=== PATIENT | female | born 1990 | race Hispanic/Latino ===

== ENCOUNTER 2021-09-09 13:16 | Emergency (ER) | payer MEDICAID ==
[~2021-09-09] VITALS: Ht 162.6 cm; Wt 83.0 kg
[2021-09-09 13:37] VITALS: BP 114/76
[2021-09-09 13:37] LABS: APPEARANCE,URINE CLEAR (CLEAR); BILIRUBIN,URINE NEGATIVE (NEGATIVE); COLOR,URINE YELLOW (YELLOW); GLUCOSE, URINE (UA) NEGATIVE (NEGATIVE); KETONES,URINE NEGATIVE (NEGATIVE); LEUKOCYTE ESTERASE ,URINE NEGATIVE (NEGATIVE); NITRATE,URINE NEGATIVE (NEGATIVE); OCCULT BLOOD,URINE MODERATE (NEGATIVE); PH,URINE 7.5 (5.0-8.0); PROTEIN,URINE NEGATIVE (NEGATIVE); UROBILINOGEN,URINE 0.2 mg/dL (0.2-1.0)
[2021-09-09 13:40] LABS: HCG,QUAL RESULT POSITIVE (NEGATIVE)
[2021-09-09 13:41] LABS: BASOPHILS % (AUTO) 0.5 % (0.0-5.0); EOSINOPHILS % (AUTO) 1.8 % (0.0-8.0); HEMATOCRIT 39.1 % (36-48); LYMPHOCYTES % (AUTO) 16.2 % (21.0-51.0); MEAN CORPUSCULAR HEMOGLOBIN 28.8 pg (27.0-33.0); MEAN CORPUSCULAR VOLUME 87.3 fL (79-99); MONOCYTES % (AUTO) 7.7 % (3.0-13.0); PLATELET COUNT (AUTO) 192 K/uL (130-400); RED BLOOD CELL COUNT(AUTO) 4.48 MIL/uL (4.00-5.50); WHITE BLOOD COUNT (AUTO) 8.5 K/uL (4.8-10.8)
[2021-09-09 13:48] LABS: CREATININE 0.6 mg/dL (0.5-1.5); POTASSIUM 4.2 mmol/L (3.5-5.1)
[2021-09-09 13:53] LABS: BACTERIA,URINE Rare /HPF (None Seen); MUCUS,URINE Moderate LPF (None Seen); SQUAMOUS EPITHELIAL CELL,UR Few /HPF (0-2); WBC,URINE None Seen /HPF (0-1)
[2021-09-09 13:59] LABS: ALBUMIN 3.6 g/dL (3.5-5.0); BILIRUBIN,TOTAL 0.3 mg/dL (0.2-1.0); TOTAL PROTEIN, SERUM 7.6 g/dL (6.0-8.3)
== END 2021-09-09 16:32 | disposition home or self-care (01) ==
LOC: EDH 13:16
DX: O36.4XX0 Maternal care for intrauterine death, not applicable or unspecified (principal); Z3A.14 14 weeks gestation of pregnancy
CPT/HCPCS: 36415; 76801; 80053; 81001; 81025; 84702; 85025; 86900; 86901

== ENCOUNTER 2022-02-05 11:12 | Emergency (ER) | payer MEDICAID ==
[~2022-02-05] VITALS: Ht 162.6 cm; Wt 83.9 kg
[2022-02-05 11:41] VITALS: BP 123/71
[2022-02-05 12:32] LABS: BASOPHILS % (AUTO) 0.4 % (0.0-5.0); EOSINOPHILS % (AUTO) 1.3 % (0.0-8.0); HEMATOCRIT 38.5 % (36-48); LYMPHOCYTES % (AUTO) 12.2 % (21.0-51.0); MEAN CORPUSCULAR HEMOGLOBIN 28.2 pg (27.0-33.0); MEAN CORPUSCULAR HGB CONC 32.2 g/dL (32.0-36.0); MEAN CORPUSCULAR VOLUME 87.7 fL (79-99); NEUTROPHILS % (AUTO) 75.6 % (40.0-77.0); PLATELET COUNT (AUTO) 200 K/uL (130-400); RED BLOOD CELL COUNT(AUTO) 4.39 MIL/uL (4.00-5.50); RED CELL DISTRIBUTION WIDTH 12.9 % (11.0-15.5); WHITE BLOOD COUNT (AUTO) 10.4 K/uL (4.8-10.8)
[2022-02-05 12:53] LABS: CREATININE 0.7 mg/dL (0.5-1.5)
[2022-02-05 12:58] LABS: TOTAL PROTEIN, SERUM 7.5 g/dL (6.0-8.3)
[2022-02-05] MEDS ORDERED: ACETAMINOPHEN 500 MG TABLET PO SCH (13:30)
== END 2022-02-05 14:45 | disposition home or self-care (01) ==
LOC: EDH 11:12
DX: O03.9 Complete or unspecified spontaneous abortion without complication (principal); Z3A.01 Less than 8 weeks gestation of pregnancy
CPT/HCPCS: 36415; 76801; 80053; 84702; 84703; 85025; 86850; 86900; 86901; 87210

== ENCOUNTER 2022-04-09 23:45 | Emergency (ER) | payer MEDICAID ==
[~2022-04-09] VITALS: Ht 162.6 cm; Wt 86.6 kg
[2022-04-10 00:11] LABS: BASOPHILS % (AUTO) 0.3 % (0.0-5.0); EOSINOPHILS % (AUTO) 2.7 % (0.0-8.0); HEMATOCRIT 35.9 % (36-48); LYMPHOCYTES % (AUTO) 19.8 % (21.0-51.0); MEAN CORPUSCULAR HEMOGLOBIN 28.3 pg (27.0-33.0); MEAN CORPUSCULAR HGB CONC 32.6 g/dL (32.0-36.0); MEAN CORPUSCULAR VOLUME 86.7 fL (79-99); MONOCYTES % (AUTO) 8.6 % (3.0-13.0); NEUTROPHILS % (AUTO) 68.3 % (40.0-77.0); PLATELET COUNT (AUTO) 190 K/uL (130-400); RED BLOOD CELL COUNT(AUTO) 4.14 MIL/uL (4.00-5.50); WHITE BLOOD COUNT (AUTO) 8.6 K/uL (4.8-10.8)
[2022-04-10 00:18] LABS: CREATININE 0.8 mg/dL (0.5-1.5); POTASSIUM 4.1 mmol/L (3.5-5.1)
[2022-04-10 00:25] LABS: ALBUMIN 3.7 g/dL (3.5-5.0); TOTAL PROTEIN, SERUM 7.2 g/dL (6.0-8.3)
[2022-04-10 00:27] LABS: APPEARANCE,URINE CLEAR (CLEAR); BILIRUBIN,URINE NEGATIVE (NEGATIVE); COLOR,URINE LIGHT-YELLOW (YELLOW); GLUCOSE, URINE (UA) NEGATIVE (NEGATIVE); KETONES,URINE NEGATIVE (NEGATIVE); LEUKOCYTE ESTERASE ,URINE NEGATIVE Leu/uL (NEGATIVE); NITRATE,URINE NEGATIVE (NEGATIVE); OCCULT BLOOD,URINE NEGATIVE (NEGATIVE); PH,URINE 6.5 (5.0-8.0); PROTEIN,URINE NEGATIVE (NEGATIVE); UROBILINOGEN,URINE 0.2 mg/dL (0.2-1.0)
[2022-04-10 00:29] LABS: HCG,QUALITATIVE URINE NEGATIVE (NEGATIVE)
[2022-04-10 05:05] VITALS: BP 125/73
[2022-04-10] MEDS ORDERED: FAMO-136 PO (05:22)
[2022-04-10] MEDS ORDERED: ONDA22I IM (05:22)
== END 2022-04-10 05:34 | disposition home or self-care (01) ==
LOC: EDH 23:45
DX: K29.70 Gastritis, unspecified, without bleeding (principal); K80.50 Calculus of bile duct without cholangitis or cholecystitis without obstruction; Z90.49 Acquired absence of other specified parts of digestive tract
CPT/HCPCS: 36415; 76705; 80053; 81003; 81025; 83690; 85025

== ENCOUNTER 2023-07-29 11:18 | Observation (INO) | payer MEDICAID ==
[~2023-07-29] VITALS: Ht 162.6 cm; Wt 87.1 kg
[~2023-07-29 11:18] MED LIST: FAMO-136 PO; ONDA22I IM
[2023-07-29 11:52] VITALS: BP 117/69; PULSE 91; RESP 16
[2023-07-29 11:57] LABS: BASOPHILS # (AUTO) 0.04 K/uL (0.00-0.20); BASOPHILS % (AUTO) 0.3 % (0.0-5.0); EOSINOPHILS # (AUTO) 0.12 K/uL (0.00-0.70); HEMATOCRIT 33.8 % (36-48); IMMATURE GRANULOCYTE ABSOLUTE 0.18 K/uL (0-1); LYMPHOCYTES # (AUTO) 1.6 K/uL (1.0-4.8); LYMPHOCYTES % (AUTO) 13.6 % (21.0-51.0); MEAN CORPUSCULAR HEMOGLOBIN 29.6 pg (27.0-33.0); MEAN CORPUSCULAR HGB CONC 33.1 g/dL (32.0-36.0); MEAN CORPUSCULAR VOLUME 89.4 fL (79-99); MONOCYTES # (AUTO) 1.2 K/uL (0.1-1.0); MONOCYTES % (AUTO) 10.7 % (3.0-13.0); NEUTROPHILS # (AUTO) 8.4 K/uL (1.8-7.7); NEUTROPHILS % (AUTO) 72.8 % (40.0-77.0); PLATELET COUNT (AUTO) 178 K/uL (130-400); RED BLOOD CELL COUNT(AUTO) 3.78 MIL/uL (4.00-5.50); RED CELL DISTRIBUTION WIDTH 13.1 % (11.0-15.5); WHITE BLOOD COUNT (AUTO) 11.5 K/uL (4.8-10.8)
[2023-07-29] MEDS ORDERED: DIPHENHYDRAMINE HCL 25 MG CAPSULE PO ONE (12:00)
[2023-07-29 12:05] LABS: CREATININE 0.6 mg/dL (0.5-1.0); POTASSIUM 3.8 mmol/L (3.5-5.1)
[2023-07-29 12:31] LABS: ALBUMIN 2.6 g/dL (3.5-5.0); BILIRUBIN,TOTAL 0.3 mg/dL (0.2-1.0); TOTAL PROTEIN, SERUM 6.7 g/dL (6.0-8.3)
[2023-07-29 12:34] LABS: APPEARANCE,URINE CLEAR (CLEAR); BILIRUBIN,URINE NEGATIVE (NEGATIVE); COLOR,URINE LIGHT-YELLOW (YELLOW); GLUCOSE, URINE (UA) NEGATIVE (NEGATIVE); KETONES,URINE NEGATIVE (NEGATIVE); LEUKOCYTE ESTERASE ,URINE NEGATIVE Leu/uL (NEGATIVE); NITRATE,URINE NEGATIVE (NEGATIVE); OCCULT BLOOD,URINE NEGATIVE (NEGATIVE); PROTEIN,URINE NEGATIVE (NEGATIVE); UROBILINOGEN,URINE 0.2 mg/dL (0.2-1.0)
[2023-07-29 12:35] LABS: ADD UA MICROSCOPIC NO
[2023-07-29 18:18] LABS: MEAN CORPUSCULAR HEMOGLOBIN 29.8 pg (27.0-33.0); MEAN CORPUSCULAR HGB CONC 32.6 g/dL (32.0-36.0); MEAN CORPUSCULAR VOLUME 91.4 fL (79-99); RED BLOOD CELL COUNT(AUTO) 3.72 MIL/uL (4.00-5.50); RED CELL DISTRIBUTION WIDTH 13.2 % (11.0-15.5); WHITE BLOOD COUNT (AUTO) 10.4 K/uL (4.8-10.8)
[2023-07-29 18:24] LABS: INR <= 0.93 (0.85-1.15)
[2023-07-29 18:25] LABS: PARTIAL THROMBOPLASTIN TIME 24.4 SEC (26.3-35.5)
[2023-07-29 18:28] LABS: FIBRINOGEN 476 mg/dL (180-350)
[2023-07-29 18:33] LABS: CREATININE 0.6 mg/dL (0.5-1.0); POTASSIUM 3.8 mmol/L (3.5-5.1)
[2023-07-29 18:37] LABS: ALBUMIN 2.7 g/dL (3.5-5.0); BILIRUBIN,TOTAL 0.4 mg/dL (0.2-1.0); TOTAL PROTEIN, SERUM 6.8 g/dL (6.0-8.3); URIC ACID 2.8 mg/dL (2.6-7.2)
[2023-07-29 18:48] LABS: HIV 1&2 ANTIBODY Non-Reactive (Negative)
[2023-07-29 18:49] LABS: HIV-1 p24 Antigen Non-Reactive (Negative)
[2023-07-29] MEDS: LACTATED RINGERS 1000ML 1,000 ML IV PRN (19:34)
[2023-07-29] MEDS: ACETAMINOPHEN 500 MG TABLET PO PRN (19:35)
[2023-07-29] MEDS: HYDROXYZINE 25 MG TABLET PO ONE (20:12)
[2023-07-31 10:55] LABS: RAPID PLASMA REAGIN NONREACTIVE (NONREACTIVE)
== END 2023-07-29 21:50 | disposition short-term general hospital (02) ==
LOC: EDH 11:18 → LDH 12:08
PROVIDERS: ADMIT Obstetrics & Gynecology; ATTEND Obstetrics & Gynecology
DX: O26.893 Other specified pregnancy related conditions, third trimester (principal); R10.2 Pelvic and perineal pain; L29.9 Pruritus, unspecified; Z3A.34 34 weeks gestation of pregnancy; Z79.899 Other long term (current) drug therapy
CPT/HCPCS: 96360; 96361; 99284; 84550; 80053 ×2; 84702; 85025; 85027; 85384; 85610; 85730; 86592; 86850 ×2; 86900 ×2; 86901 ×2; 87340; 86701; 87390; 81003; 36415; G0378 ×3; J7120

== ENCOUNTER 2023-12-05 06:47 | Day surgery (SDC) | payer MEDICAID ==
[2023-12-04 15:17] LABS: INR 0.95 (0.85-1.15); PROTHROMBIN TIME 10.3 SEC (9.6-11.6)
[2023-12-04 15:19] LABS: PARTIAL THROMBOPLASTIN TIME 26.7 SEC (26.3-35.5)
[2023-12-04 15:34] VITALS: BP 117/60; PULSE 75; RESP 16; TEMP 97.8
[2023-12-05] VITALS (16 sets, daily range): BP systolic 102–116; BP diastolic 51–73; PULSE 75–107; RESP 14–19; TEMP 97.4–98.6
[~2023-12-05] VITALS: Ht 162.6 cm; Wt 82.9 kg
[2023-12-05] MEDS: BUPIvacaine/PF 0.25% 30ML VIAL IJ ONE
[~2023-12-05 06:47] MED LIST changes: -FAMO-136 PO; +LACTATED RINGERS 1000ML 1,000 ML IV ONE; +NAPR-1023 PO; -ONDA22I IM
[2023-12-05] MEDS ORDERED: dexaMETHasone SOD PHOSPHATE 10MG/ML 1ML VIAL ONE (07:05)
[2023-12-05] MEDS ORDERED: SUCCINYLCHOLINE CHLORIDE 20 MG/ML 10 ML VIAL ONE (07:05)
[2023-12-05] MEDS ORDERED: LIDOCAINE PF 100MG/5ML (2%) SYRINGE 5ML ONE (07:05)
[2023-12-05] MEDS ORDERED: FENTanyl CITRate PF 50 MCG/1 ML 2ML VIAL ONE ×2 (07:06→09:54)
[2023-12-05] MEDS ORDERED: proPOFol 10 MG/ML 20ML VIAL IV ONE (07:06)
[2023-12-05] MEDS ORDERED: GLYCOPYRROLATE 0.2 MG/ML 5 ML VIAL ONE (07:06)
[2023-12-05] MEDS ORDERED: ondanSETRON 4MG INJ ONE ×2 (07:06→08:46)
[2023-12-05] MEDS ORDERED: NEOSTIGMINE METHYLSULFATE 1MG/ML IV ONE (07:06)
[2023-12-05] MEDS ORDERED: MIDAZOLAM HCL 1 MG/ML 2ML VIAL ONE (07:06)
[2023-12-05] MEDS ORDERED: rocuRONium bROMide 10MG/1ML 5ML VL ONE (07:07)
[2023-12-05] MEDS ORDERED: ROPivacaine 0.5% 5MG/ML 30ML ONE (07:21)
[2023-12-05] MEDS: ceFAZolin SODIUM 2 GM VIAL ONE (07:42)
[2023-12-05] MEDS ORDERED: FENTanyl CITRate PF 50 MCG/1 ML 5ML AMP IV ONE (07:54)
[2023-12-05] MEDS ORDERED: MEPERIDINE-PF 25 MG/ML SYG ONE (10:21)
[2023-12-05] MEDS: MEPERIDINE-PF 25 MG/ML SYG ONE ×2 (11:22→11:32)
[2023-12-05] MEDS: acetaMINOPHEN 1,000 MG/100 ML VIAL IV ONE (11:42)
[2023-12-05] MEDS: ondanSETRON 4MG INJ ONE (12:00)
== END 2023-12-05 12:38 | disposition home or self-care (01) ==
LOC: DAH 06:47
PROVIDERS: ATTEND Podiatrist
DX: M19.171 Post-traumatic osteoarthritis, right ankle and foot (principal); E66.9 Obesity, unspecified; Z79.01 Long term (current) use of anticoagulants; Z79.899 Other long term (current) drug therapy; Z98.51 Tubal ligation status
CPT/HCPCS: 84703; 85610; 85730; 36415; 29899; 27899; 29999; 64447; 64445; 73600; A6260; C1769; C1713 ×3; A4663; A4649 ×2; J7120; J3010 ×3; J1100; J0330; J0665; J3490 ×3; J2003; J2250; J2405 ×3; J2710; J2175 ×3; J2795; J0690; C1762; A4930; A4215; A4223; A4213; A4222; A4221; A6450; J2704